=== PATIENT | female | born 1960 | race Caucasian/White ===

== ENCOUNTER 2020-02-15 15:49 | Emergency (ER) | payer SELFPAY ==
[2020-02-15] MEDS ORDERED: Benzocaine 20% Spray 60 ML CAN ONE (16:24)
--- NOTE | 2020-02-15 18:26 | RAD ---
CHEST ONE VIEW: History: NG tube placement. FINDINGS: Nasogastric tube terminates in the epigastric region and projects over the gastric bubble. Normal car diac silhouette. The lungs and pleural spaces are clear. No pneumothorax or acute osseous abnormality . IMPRESSION: Nasogastric tube terminating in the stomach. POS: PPP
[2020-02-15] MEDS ORDERED: Ondansetron PF 4 MG/2 ML Vial ONE (18:35)
[2020-02-15] MEDS ORDERED: Morphine 4 MG/ML VIAL ONE (18:35)
--- NOTE | 2020-02-15 18:42 | CON ---
DATE OF CONSULTATION: REASON FOR EVALUATION: Bowel obstruction with a large ovarian mass in a postmenopausal woman. HISTORY OF PRESENT ILLNESS: In brief, I was called by Bhumika, the nurse practitioner, after this patient presented as a 59-year-old female with nausea, vomiting, and what seemed to be an abdominal mass versus distention on exam. The ER diagnostic studies revealed a large ovarian structure about 26 cm in its largest dimension. The patient does have a small bowel obstruction as well and this large ovarian mass is complex with a suspicion of keratoma versus other. I was called to evaluate whether this patient needed surgical evaluation here by Gynecology or if Gynecology Oncology was needed. PAST MEDICAL HISTORY: Significant for chronic hypertension. OB HISTORY: She is a nulligravida. OTHER HISTORY: Pretty much unremarkable. GYNECOLOGY HISTORY: The patient states that she still has "periods" despite the fact that she is 59. PHYSICAL EXAMINATION: GENERAL: The patient has an NG tube in place, but is alert and able to answer questions. She is in no acute distress, but obvious she is in discomfort from the NG tube and from the abdominal mass, which she states has pressure. ABDOMEN: Distended, but not acutely tender. I have discussed the findings on the imaging with the patient at bedside and Bhumika was present at bedside as well. I discussed with both Bhumika and the patient that I am concerned about the ovarian mass based on her age (59) and the bowel obstruction. The fact the patient is still having periods, it is also concerning for an estrogen secreting tumor/neoplasia. Because of this, I feel that the patient requires Gynecology Oncology Services, because I do not want to enter the abdomen and find that this mass is malignant and we do not have staging capability here that would lead to worse long-term patient outcomes. According to the ACOG, if there is a possibility of malignancy, in a postmenopausal woman with a large ovarian mass-especially with bowel obstruction-Gynecology Oncology should be consulted. I have discussed this with the patient and the patient does agree to transfer likely to [facility], which is where Bhumika has a contact. The second option will be to send her to Dr. Grimaldo in [place]. ASSESSMENT: Postmenopausal patient with large adnexal mass and bowel obstruction, rule out malignancy. PLAN: 1. Continue bowel decompression. 2. As no Gynecology Oncology Services are here, the patient needs transport to Gynecology Oncology Service again. Job ID: [id number]
== END 2020-02-15 20:31 | disposition short-term general hospital (02) ==
LOC: ERS 15:49
DX: K56.609 Unspecified intestinal obstruction, unspecified as to partial versus complete obstruction (principal); D27.1 Benign neoplasm of left ovary
CPT/HCPCS: 36415; 71045; 82105; 82378; 84702; 86304; 96361; 96374; 96375; J2270; J2405